=== PATIENT | male | born 1975 | race Caucasian/White ===

== ENCOUNTER 2016-12-02 08:00 | Outpatient (CLI) | payer MEDICARE, MEDICAID ==
[2016-12-02 18:18] LABS: BILIRUBIN,DIRECT 0.1 mg/dL (0.1-0.5); BILIRUBIN,TOTAL 0.7 mg/dL (0.2-1.0); TOTAL PROTEIN 7.6 g/dL (6.7-8.2)
== END 2016-12-02 08:01 | disposition home or self-care (01) ==
LOC: LAB.F 08:00
PROVIDERS: ATTEND Nurse Practitioner
DX: K59.2 Neurogenic bowel, not elsewhere classified (principal); S14.105D Unspecified injury at C5 level of cervical spinal cord, subsequent encounter
CPT/HCPCS: 80076; 82306

== ENCOUNTER 2017-03-26 12:50 | Outpatient (CLI) | payer MEDICARE, MEDICAID ==
--- NOTE | 2017-03-26 16:25 | Ultrasound Report ---
RENAL ULTRASOUND: 03/26/2017 CLINICAL INDICATION: Neurogenic bladder. COMPARISON: 08/01/2015. TECHNIQUE: Real-time sonographic vascular imaging was performed by the cardiac/vascular sonographer through the kidney s utilizing both color-flow and Doppler spectral analysis. Multiple data entry representative static images wer e saved for review. FINDINGS: The right kidney measures 11.1 x 6.3 x 5.0 cm, and the left kidney measures 11.7 x 6.5 x 6 .0 cm. No hydronephrosis, focal renal lesion, or perinephric collection is seen. A suprapubic bladder catheter is present. Two small bladder calculi are noted, with the larger measur ing 9 mm, and the smaller measuring 5 mm. Bilateral ureteral jets are seen. No bladder wall mass is i dentified. IMPRESSION: NO EVIDENCE OF HYDRONEPHROSIS OR NEPHROLITHIASIS. TWO SMALL BLADDER CALCULI, THE LARGER MEASURING 9 MM AND THE SMALLER MEASURING 5 MM. JOB #: [id number] EXT JOB #:[id number]
--- NOTE | 2017-03-26 17:09 | XRAY Report ---
SUPINE ABDOMEN: 03/26/2017 CLINICAL INDICATION: Neurogenic bladder. Supine views of the abdomen demonstrate a normal bowel gas pattern. No small bowel dilatation is pre sent. No definite bladder calculus is identified in the pelvis. IMPRESSION: NO EVIDENCE OF BOWEL OBSTRUCTION. JOB #: [id number] EXT JOB #:[id number]
== END 2017-03-26 12:51 | disposition home or self-care (01) ==
LOC: DI 12:50
PROVIDERS: ATTEND Urology
DX: N21.0 Calculus in bladder (principal)
CPT/HCPCS: 74000; 76770

== ENCOUNTER 2017-05-07 10:30 | Outpatient (CLI) | payer MEDICARE, MEDICAID ==
[2017-05-07 17:48] LABS: BASOPHILS % (AUTO) 0.9 %; EOSINOPHILS % (AUTO) 5.3 %; LYMPHOCYTES % (AUTO) 11.2 %; MEAN CORPUSCULAR HEMOGLOBIN 29.6 pg (27.0-31.0); MEAN CORPUSCULAR HGB CONC 33.3 g/dL (32.0-36.0); MEAN CORPUSCULAR VOLUME 88.8 fL (80.0-94.0); MEAN PLATELET VOLUME 8.9 fL (7.4-11.4); MONOCYTES % (AUTO) 7.3 %; NEUTROPHILS % (AUTO) 75.3 %; RED BLOOD COUNT 5.06 10^6/uL (4.70-6.10); RED CELL DISTRIBUTION WIDTH 12.4 % (12.0-15.0); UNCORRECTED WHITE BLOOD COUNT 12.5 x10^3/uL; WHITE BLOOD COUNT 12.5 x10^3/uL (4.8-10.8)
[2017-05-07 18:11] LABS: BILIRUBIN,TOTAL 0.6 mg/dL (0.2-1.0); CALCIUM 9.1 mg/dL (8.5-10.3); CREATININE 0.8 mg/dL (0.6-1.2); POTASSIUM 4.2 mmol/L (3.5-5.0); TOTAL PROTEIN 8.1 g/dL (6.7-8.2)
[2017-05-07 19:57] LABS: BAND NEUTROPHILS % (MANUAL) 6 %; EOSINOPHILS % (MANUAL) 6 %; LYMPHOCYTES % (MANUAL) 5 %; NEUTROPHILS % (MANUAL) 73 %; TOTAL CELLS COUNTED 100
[2017-05-07 19:58] LABS: NP AUTO DIFFERENTIAL? YES; NP MAN DIFFERENTIAL? NO; PLATELET ESTIMATE, MANUAL NORMAL (130-450,000) (NORMAL); PLATELET MORPHOLOGY NORMAL APPEARANCE (NORMAL)
== END 2017-05-07 10:31 | disposition home or self-care (01) ==
LOC: LAB.R 10:30
PROVIDERS: ATTEND Internal Medicine
DX: Z79.899 Other long term (current) drug therapy (principal)
CPT/HCPCS: 80053; 82306; 82465; 83615; 84443; 84478; 85025

== ENCOUNTER 2018-07-08 11:05 | Outpatient (CLI) | payer MEDICARE, MEDICAID ==
[2018-07-08 17:58] LABS: BASOPHILS # (AUTO) 0.1 10^3/uL (0.0-0.1); BASOPHILS % (AUTO) 1.2 %; EOSINOPHILS # (AUTO) 0.6 10^3/uL (0.0-0.7); EOSINOPHILS % (AUTO) 8.3 %; HGB - HEMOGLOBIN 14.9 g/dL (14.0-18.0); LYMPHOCYTES # (AUTO) 1.5 10^3/uL (1.5-3.5); LYMPHOCYTES % (AUTO) 19.7 %; MEAN CORPUSCULAR HEMOGLOBIN 29.9 pg (27.0-31.0); MEAN CORPUSCULAR HGB CONC 33.5 g/dL (32.0-36.0); MEAN CORPUSCULAR VOLUME 89.1 fL (80.0-94.0); MEAN PLATELET VOLUME 8.7 fL (7.4-11.4); MONOCYTES # (AUTO) 0.5 10^3/uL (0.0-1.0); NEUTROPHILS # (AUTO) 4.9 10^3/uL (1.5-6.6); NEUTROPHILS % (AUTO) 63.8 %; PLT - PLATELET COUNT 266 10^3/uL (130-450); RED BLOOD COUNT 4.98 10^6/uL (4.70-6.10); RED CELL DISTRIBUTION WIDTH 13.2 % (12.0-15.0); WHITE BLOOD COUNT 7.6 x10^3/uL (4.8-10.8)
[2018-07-08 18:29] LABS: THYROID STIMULATING HORMONE 0.37 uIU/mL (0.34-5.60)
[2018-07-08 18:31] LABS: FREE T4 (FREE THYROXINE) 0.74 ng/dL (0.58-1.64)
[2018-07-08 18:35] LABS: ALBUMIN 4.1 g/dL (3.2-5.5); ALKALINE PHOSPHATASE 70 IU/L (42-121); ALT ALANINE AMINOTRANSFERASE 27 IU/L (10-60); AST ASPARTATE AMINOTRANSFERASE 25 IU/L (10-42); BILIRUBIN,TOTAL 0.5 mg/dL (0.2-1.0); BUN - BLOOD UREA NITROGEN 9 mg/dL (6-20); CALCIUM 9.1 mg/dL (8.5-10.3); CARBON DIOXIDE - CO2 27 mmol/L (21-32); CHLORIDE 107 mmol/L (101-111); CHOL/HDL RATIO 7.4 (<5.0); CHOLESTEROL 186 mg/dL; CREATININE 0.7 mg/dL (0.6-1.2); GFR - MDRD 123 (>89); GLUCOSE 112 mg/dL (70-100); HDL CHOLESTEROL 25 mg/dL; LDL CHOLESTEROL,CALCULATED 125 mg/dL; SODIUM 138 mmol/L (135-145); TOTAL PROTEIN 8.2 g/dL (6.7-8.2); VLDL CHOLESTEROL 36 mg/dL
== END 2018-07-08 23:59 | disposition home or self-care (01) ==
LOC: LAB.R 11:05
PROVIDERS: ATTEND Internal Medicine
DX: E78.5 Hyperlipidemia, unspecified (principal); E55.9 Vitamin D deficiency, unspecified; Z79.899 Other long term (current) drug therapy
CPT/HCPCS: 80053; 80061; 82306; 83721; 84439; 84443; 85025

== ENCOUNTER 2019-02-09 13:09 | Outpatient (CLI) | payer MEDICARE, MEDICAID ==
[2019-02-09 17:24] VITALS: BP 100/60
--- NOTE | 2019-02-09 17:24 | SLEEP CARE CONSULTATION ---
Information from patient questionnaire entered by Ana [place]. I have reviewed and concur with the information entered by Ana [place]. This document represents the service I personally performed and the decisions made by me, Nakul Sierra MD, [facility]. History of Present Illness Reason for Visit: New patient, sleep apnea on CPAP therapy Chief Complaint: reports: Snoring, Excessive daytime sleepiness, Observed pauses in breathing Duration of Symptoms: since 2011 Usual bedtime: 11:00 pm Time it takes to fall asleep: 15 mins with CPAP Snores at night: Yes Observed to quit breathing while asleep: No Sleeps alone due to snoring: No Number of times waking at night: 2 Reasons for waking at night: reports: Snoring Toss, Turn, or Twitch while sleeping: No Recalls having dreams: Yes Usually gets out of bed at: 8:30 am Feels refreshed in the morning: Yes Morning headache: No Sleepy or fatigued during the day: No Ever fallen asleep while driving: No Takes day naps: Yes Dreams during day naps: No Prior sleep studies: Yes Year and Where: [address] [facility] Additional HPI information: I had the pleasure of seeing Mr. Chun along with his mother today regarding the possibility of him having a sleep disorder. As you know, he is a 43 year old gentleman who was diagnosed with the sleep-disordered breathing in 2011 at [facility]. The AHI was 99.2 and he was noted to have hypoventilation. BiPAP was prescribed and set at 26/18.2 cmH2O. He has been using the device every night and all night. The compliance data show usage in 175 out of the past 180 nights, averaging 5.2 hours a night. The > 4 hour compliance rate for the past 30 days is 98%. The residual AHI is 4.7 and average air leak is 1.7 L/minute. He wears a full face mask and complains of having to wear it very tightly. - Parasomnia Symptoms Ever been unable to move upon waking from sleep: Yes Ever felt weak in the knees when startled or emotional: No Bothered by creepy, crawly, restless sensations in legs: No Problems with memory or concentration: Yes CPAP Compliance Data - Data Reviewed with Patient Average duration of nightly device use: 5.2 Compliance rate %: 97 Current pressure setting (cmH2O): 26/18.2 Average residual AHI: 4.7 Subjective Initial [place] Sleepiness Scale score: 8 Past Medical History Past Medical History: reports: Arthritis, GERD, Other (Paralysis) Social History Patient is Single and lives in [place]. Have you smoked in the past 12 months: No Alcohol use: No Caffeine use: Yes Caffeine amount and frequency: 4 cups a week Family History Family history of sleep disordered breathing: No Allergies and Home Medications Known drug allergies: No Home medication list reviewed: Yes Review of Systems Weight gain over past 5 years: 5 Cardiovascular: denies: high blood pressure, palpitations, chest pain, irregular heart rate or pulse, leg or foot swelling, have to sleep sitting up, other Gastrointestinal: reports: nausea, diarrhea Urinary: reports: incontinence Neurological: denies: headaches, seizure, head trauma, disorientation, speech dysfunction, gait or balance problems, fainting or unconsciousness, other Ear/Nose/Throat: reports: nasal congestion, sinus problems, dry mouth/throat, tonsillectomy Endocrine: denies: thyroid disease, history of goiter, sluggishness, too hot or cold, excessive thirst, increased appetite, increased urination, unexplained weakness, other Musculoskeletal: reports: mobility problems Immunologic: reports: allergies to food or environment (nuts) Physical Exam Vital signs obtained and entered by: Dr. Sierra Blood Pressure: 100/60 Height: 5 ft 8 in Weight (kg): 205 lb Body Mass Index: 31.1 BMI Classification: Class 1 Neck circumference: 19.5 Mood/affect: normal Nostrils: partially obstructed Turbinates: normal Septum: midline Mouth and throat: narrow oropharynx Soft palate: long Hard palate: normal Uvula: normal Uvula visualization: 25% Mallampati Class III Tongue: normal in size Tonsils: absent bilaterally Chin and jaw: Retrognathia Neck: normal w/o lymphadenopathy or thyromegaly Heart: regular rate and rhythm Lungs: clear bilaterally Abdomen: soft Extremities: no edema or clubbing Neurologic: other: Impression and Plan IMPRESSION: 1. Obstructive Sleep Apnea-Hypopnea Syndrome, very severe. The patient has had excellent CPAP compliance. The current pressure setting appears effective and but slightly uncomfortable. His mask fits well. I showed him newer full face masks. Narrow oropharynx and obesity are common predisposing factors for obstructive sleep apnea-hypopnea syndrome. His cervical spinal cord injury most likely also causes hypoventilation. Because the BiPAP is now older than the useful life of 5 years, I will order the patient a new one and set slightly lower it at 24/16 cmH2O. Plan: 1. Prescription made for BiPAP, heated humidifier, and related supplies. 2. Attempt to lose weight. 3. Return for follow up after one month on the new machine. I spent 100% of this 15 minute visit face to face with the patient with greater than 50% of this was spent time counseling the patient and coordination of care.
== END 2019-02-09 13:10 | disposition home or self-care (01) ==
LOC: SC 13:09
PROVIDERS: ATTEND Internal Medicine Pulmonary Disease
DX: G47.33 Obstructive sleep apnea (adult) (pediatric) (principal)
CPT/HCPCS: 99203; 99212

== ENCOUNTER 2020-06-28 08:00 | Outpatient (CLI) | payer MEDICARE, MEDICAID ==
[2020-06-28 17:20] LABS: BILIRUBIN,URINE NEGATIVE (NEGATIVE); GLUCOSE, URINE (UA) NEGATIVE (NEGATIVE); KETONES,URINE (UA) NEGATIVE (NEGATIVE); LEUKOCYTE ESTERASE, URINE SMALL (NEGATIVE); NITRITE,URINE NEGATIVE (NEGATIVE); OCCULT BLOOD,URINE MODERATE (NEGATIVE); PROTEIN,URINE NEGATIVE (NEGATIVE); UROBILINOGEN,URINE 0.2 (NORMAL) E.U./dL (NORMAL)
[2020-06-28 17:22] LABS: CLARITY,URINE CLEAR (CLEAR)
[2020-06-28 17:40] LABS: AMORPHOUS SEDIMENT,UR Rare /LPF; BACTERIA,URINE Many /HPF (None Seen); SQUAMOUS EPITHELIAL CELL,UR MANY Squamous (<= Few)
== END 2020-06-28 23:59 | disposition home or self-care (01) ==
LOC: LAB.R 08:00
PROVIDERS: ATTEND Family Medicine
DX: N39.0 Urinary tract infection, site not specified (principal)
CPT/HCPCS: 81001; 81003; 87086

== ENCOUNTER 2020-10-12 11:43 | Emergency (ER) | payer MEDICARE, MEDICAID ==
--- OUTSIDE RECORDS SUMMARY | 2020-10-12 12:18 | EXTERNAL MEDICAL SUMMARY RPT | Continuity of Care Document ---
:1975 Demographics Phone Unavailable Preferred Language Unknown Marital Status Unknown Yazidi Affiliation Unknown Race Unknown Ethnic Group Unknown Author Organization [facility] Address [address] [id number] Phone Social History date description facility [id number]
[2020-10-12] MEDS ORDERED: BUFFERED LIDOCAINE 10 ML SYRINGE SUBQ STA (14:01)
--- NOTE | 2020-10-12 14:27 | ED Physician Documentation ---
History of Present Illness - Stated complaint Stated Complaint: POSSIBLE FOOT INFECTION - Chief complaint Chief Complaint: Ext Problem - History obtained from History obtained from: Patient, Family (mother) - Additonal information Additional information: 45yM with pmh guadriplegia presents with L foot callus progressing to erythema over the past couple days. Patient has no sensation to the foot however it has been jerking more than usual and has slowly become more swollen and erythematous, starting from the ball of the foot where his blister/callus initially formed. denies fever. 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 Review of Systems Constitutional: denies: Fever, Chills Skin: reports: Other (erythema and swelling) Musculoskeletal: reports: Extremity swelling Neurologic: reports: Focal weakness, Numbness PD PAST MEDICAL HISTORY - Past Medical History Past Medical History: Yes Respiratory: None Endocrine/Autoimmune: None GI: None : Indwelling catheter, Kidney stones HEENT: None Psych: None Musculoskeletal: Other Derm: None - Past Surgical History Past Surgical History: Yes General: Other Ortho: Other HEENT: Tonsil/Adenoidectomy - Present Medications Home Medications: Ambulatory Orders Medication Instructions Recorded Confirmed Ascorbic Acid [Vitamin C] 500 mg PO BID 08/03/15 08/14/15 Baclofen 10 mg PO QID 08/03/15 08/14/15 Gabapentin [Neurontin] 300 mg PO QID 08/03/15 08/14/15 Multivitamin [Theragran] 1 tab PO DAILY 08/03/15 08/03/15 Omeprazole [PriLOSEC] 20 mg PO DAILY 08/03/15 08/03/15 Oxybutynin [Ditropan] 5 mg PO TID 08/03/15 08/14/15 Senna [Senokot] 8.6 mg PO DAILY 08/03/15 08/03/15 diazePAM [Valium] 5 mg PO TID 08/03/15 08/14/15 tiZANidine [Zanaflex] 4 mg PO TID 08/03/15 08/14/15 Docusate Sodium 250Mg Capsule 250 mg PO BID 08/14/15 08/14/15 [Colace] Bacitracin 3.5 gm OP DAILY 20 Days #1 bottle 10/12/20 cephALEXin [Keflex] 500 mg PO Q6H #28 tab 10/12/20 - Allergies Allergies/Adverse Reactions: Allergies Allergy/AdvReac Type Severity Reaction Status Date / Time tree nut [Tree Nut] Allergy Unknown UNKNOWN Verified 11/27/12 13:50 - Social History Does the pt smoke?: No Smoking Status: Never smoker Does the pt drink ETOH?: No Does the pt have substance abuse?: No - Immunizations Immunizations are current?: Yes - POLST Patient has POLST: No PD ED PE NORMAL - Vitals Vital signs reviewed: Yes - General General: Alert and oriented X 3, No acute distress, Well developed/nourished - HEENT HEENT: Atraumatic, PERRL, EOMI - Derm Derm: Warm and dry, Other (erythema and swelling to base of L foot with blister to ball of foot and overlying callus formation) - Extremities Extremities: No deformity, Other (2+ BL DP and PT pulses) - Neuro Neuro: Alert and oriented X 3, Other (extremities quadriplegic at baseline.) - Psych Psych: Normal mood, Normal affect Results - Vitals Vitals: Vital Signs - 24 hr 10/12/20 10/12/20 11:59 15:03 Temperature 36.3 C L Heart Rate 95 90 Respiratory 16 16 Rate Blood Pressure 136/102 H 130/100 H O2 Saturation 99 99 Oxygen O2 Source Room air Procedures - Abscess I&D (location) Foot left Plantar Preparation: Lidocaine 1% Incision: Incised with scalpel, Irrigated, Other (no purulence. blister contained about 5-10cc serous fluid. irrigated copiously with normal saline and then applied sterile dressing.) Other: Pt tolerated well, Dressing applied, Antibiotic prescribed PD MEDICAL DECISION MAKING - ED course ED course: 45yM with pmh quadriplegia presents with recent blister and callus formation to L foot that appears to have become infected. I cut the callus open and irrigated with sterile saline and then a sterile dressing was applied and antibiotics prescribed. patient tolerated well. strict return precautions given. He will have daily dressing changes by visiting nurse services. Plan to f/u with wound clinic and podiatry. Departure - Departure Disposition: 01 Home, Self Care Clinical Impression: Cellulitis Condition: Good Instructions: Cellulitis Dc Prescriptions: Bacitracin 3.5 gm OP DAILY 20 Days #1 bottle cephALEXin [Keflex] 500 mg PO Q6H #28 tab Comments: You were seen in the emergency department for left foot cellulitis (a skin infection). It is important to take antibiotics as prescribed and return to the emergency department if you have any fevers, if the swelling is not getting better or is getting worse in 48 hours, or if you have other concerns. Please follow-up with wound clinic and with podiatry. The dressing should be changed daily with a nonstick bandage and Kerlix as well as bacitracin. Wound Care Center Doctor [facility] [place], [place] [address] [address] [facility] Facebook ([phone]) [employer] [address] Open Closes 5:30 PM Discharge Date/Time: 10/12/20 15:04
[2020-10-12] MEDS ORDERED: BACITRACIN ZINC OINT 1 PACKET TOP STA (14:48)
[2020-10-12 15:04] VITALS: BP 130/100
== END 2020-10-12 15:04 | disposition home or self-care (01) ==
LOC: ED 11:43
DX: L03.116 Cellulitis of left lower limb (principal); L84 Corns and callosities; S90.822A Blister (nonthermal), left foot, initial encounter; X58.XXXA Exposure to other specified factors, initial encounter; G82.50 Quadriplegia, unspecified
CPT/HCPCS: 10060; 10140

== ENCOUNTER 2020-11-06 14:40 | Outpatient (CLI) | payer MEDICARE, MEDICAID | END 2020-11-06 23:59 | disposition home or self-care (01) | LOC: LAB.R 14:40 | PROVIDERS: ATTEND Family Medicine | DX: G82.50 Quadriplegia, unspecified (principal) | CPT/HCPCS: 87070; 87077; 87181; 87205 ==

== ENCOUNTER 2021-09-12 14:46 | Outpatient (CLI) | payer MEDICARE, MEDICAID ==
--- NOTE | 2021-09-12 17:22 | XRAY Report ---
PROCEDURE: Foot 3 View LT INDICATIONS: PRESSURE ULCER OF OTHER SITE, STAGE 3 TECHNIQUE: 3 views of the foot were acquired. COMPARISON: None FINDINGS: Bones: Dislocation of the small toe MTP joint. Severe disuse osteopenia. No suspicious bony lesions. No conclusive evidence of osteomyelitis. Soft tissues: No tibiotalar joint effusion. Achilles tendon appears normal. IMPRESSION: 1. Dislocation of the small toe MTP joint. 2. Severe disuse osteopenia. 3. No conclusive evidence of osteomyelitis by plain films. However, consider left foot MRI with and w ithout contrast if suspect osteomyelitis. Reviewed by: Shaw Felix MD on 09/12/2021 5:21 PM PDT Approved by: Shaw Felix MD on 09/12/2021 5:21 PM PDT Station ID: [id number]
== END 2021-09-12 14:47 | disposition home or self-care (01) ==
LOC: DI 14:46
PROVIDERS: ATTEND Nurse Practitioner
DX: L89.893 Pressure ulcer of other site, stage 3 (principal); S93.125A Dislocation of metatarsophalangeal joint of left lesser toe(s), initial encounter; M85.872 Other specified disorders of bone density and structure, left ankle and foot

== ENCOUNTER 2021-11-08 14:25 | Outpatient (CLI) | payer MEDICARE, MEDICAID ==
[2021-11-08 14:45] LABS: BILIRUBIN,URINE NEGATIVE (NEGATIVE); GLUCOSE, URINE (UA) NEGATIVE (NEGATIVE); KETONES,URINE (UA) NEGATIVE (NEGATIVE); LEUKOCYTE ESTERASE, URINE MODERATE (NEGATIVE); NITRITE,URINE POSITIVE (NEGATIVE); OCCULT BLOOD,URINE TRACE-INTA (NEGATIVE); PROTEIN,URINE NEGATIVE (NEGATIVE); UROBILINOGEN,URINE 0.2 (NORMAL) E.U./dL (NORMAL)
[2021-11-08 14:49] LABS: CLARITY,URINE SL. CLOUDY (CLEAR)
[2021-11-08 14:56] LABS: BACTERIA,URINE Moderate /HPF (None Seen); RBC,URINE 0-5 /HPF (0-5); SQUAMOUS EPITHELIAL CELL,UR FEW Squamous (<= Few); WBC CLUMPS,URINE PRESENT; WBC,URINE >25 /HPF (0-3)
== END 2021-11-08 14:26 | disposition home or self-care (01) ==
LOC: LAB 14:25
PROVIDERS: ATTEND Family Medicine
DX: Z46.6 Encounter for fitting and adjustment of urinary device (principal)
CPT/HCPCS: 81001; 87086

== ENCOUNTER 2022-03-22 15:06 | Outpatient (CLI) | payer MEDICARE, MEDICAID ==
[2022-03-22 20:24] LABS: BILIRUBIN,URINE NEGATIVE (NEGATIVE); GLUCOSE, URINE (UA) 500 mg/dL (NEGATIVE); KETONES,URINE (UA) 15 mg/dL (NEGATIVE); LEUKOCYTE ESTERASE, URINE SMALL (NEGATIVE); NITRITE,URINE NEGATIVE (NEGATIVE); OCCULT BLOOD,URINE LARGE (NEGATIVE); PROTEIN,URINE 100 mg/dL (NEGATIVE); UROBILINOGEN,URINE 1 (NORMAL) E.U./dL (NORMAL)
[2022-03-22 20:26] LABS: CLARITY,URINE CLOUDY (CLEAR)
[2022-03-22 20:40] LABS: WBC,URINE >25 /HPF (0-3)
[2022-03-22 20:41] LABS: BACTERIA,URINE Few /HPF (None Seen); SQUAMOUS EPITHELIAL CELL,UR RARE Squamous (<= Few); YEAST,URINE PRESENT
== END 2022-03-22 15:07 | disposition home or self-care (01) ==
LOC: LAB.R 15:06
PROVIDERS: ATTEND Internal Medicine
DX: N39.0 Urinary tract infection, site not specified (principal)
CPT/HCPCS: 81001; 81003; 87086

== ENCOUNTER 2022-09-26 08:00 | Outpatient (CLI) | payer MEDICARE, MEDICAID ==
[2022-09-26 14:13] LABS: BASOPHILS # (AUTO) 0.1 10^3/uL (0.0-0.1); BASOPHILS % (AUTO) 0.8 %; EOSINOPHILS # (AUTO) 0.3 10^3/uL (0.0-0.7); EOSINOPHILS % (AUTO) 4.8 %; HGB - HEMOGLOBIN 15.9 g/dL (14.0-18.0); LYMPHOCYTES # (AUTO) 1.4 10^3/uL (1.5-3.5); LYMPHOCYTES % (AUTO) 23.3 %; MEAN CORPUSCULAR HEMOGLOBIN 29.6 pg (27.0-31.0); MEAN CORPUSCULAR HGB CONC 33.8 g/dL (32.0-36.0); MEAN CORPUSCULAR VOLUME 87.4 fL (80.0-94.0); MEAN PLATELET VOLUME 10.6 fL (7.4-11.4); MONOCYTES # (AUTO) 0.5 10^3/uL (0.0-1.0); MONOCYTES % (AUTO) 8.9 %; NEUTROPHILS # (AUTO) 3.8 10^3/uL (1.5-6.6); NEUTROPHILS % (AUTO) 61.4 %; PLT - PLATELET COUNT 244 10^3/uL (130-450); RED BLOOD COUNT 5.38 10^6/uL (4.70-6.10); RED CELL DISTRIBUTION WIDTH 12.1 % (12.0-15.0); WHITE BLOOD COUNT 6.1 x10^3/uL (4.8-10.8)
[2022-09-26 14:45] LABS: ALBUMIN 3.8 g/dL (3.2-5.5); ALKALINE PHOSPHATASE 80 IU/L (42-121); ALT ALANINE AMINOTRANSFERASE 34 IU/L (10-60); AST ASPARTATE AMINOTRANSFERASE 19 IU/L (10-42); BILIRUBIN,TOTAL 0.7 mg/dL (0.2-1.0); BUN - BLOOD UREA NITROGEN 14 mg/dL (6-20); CALCIUM 9.1 mg/dL (8.5-10.3); CARBON DIOXIDE - CO2 26 mmol/L (21-32); CHLORIDE 102 mmol/L (101-111); CHOL/HDL RATIO 8.6 (<5.0); CHOLESTEROL 231 mg/dL; CREATININE 0.6 mg/dL (0.6-1.2); GFR - MDRD 143 (>89); GLUCOSE 344 mg/dL (70-100); HDL CHOLESTEROL 27 mg/dL; LDL CHOLESTEROL,CALCULATED 160 mg/dL; LDL/HDL RATIO 5.9 (<3.6); POTASSIUM 4.2 mmol/L (3.5-5.0); SODIUM 133 mmol/L (135-145); TOTAL PROTEIN 7.5 g/dL (6.7-8.2); TRIGLYCERIDES 219 mg/dL; VLDL CHOLESTEROL 44 mg/dL
== END 2022-09-26 23:59 | disposition home or self-care (01) ==
LOC: LAB.R 08:00
PROVIDERS: ATTEND Internal Medicine
DX: Z00.00 Encounter for general adult medical examination without abnormal findings (principal); K21.9 Gastro-esophageal reflux disease without esophagitis; N31.9 Neuromuscular dysfunction of bladder, unspecified; G82.50 Quadriplegia, unspecified; Z79.899 Other long term (current) drug therapy
CPT/HCPCS: 80053; 80061; 83721; 84443; 85025

== ENCOUNTER 2023-01-13 13:24 | Outpatient (CLI) | payer MEDICARE, MEDICAID ==
--- NOTE | 2023-01-13 17:09 | XRAY Report ---
PROCEDURE: Abdomen 1 View X-Ray INDICATIONS: BLADDER STONE TECHNIQUE: One view of the abdomen acquired. COMPARISON: X-ray abdomen, 03/26/2017. FINDINGS: Surgical changes and devices: None. Bowel: Bowel gas pattern is normal. Soft tissues: No suspicious abdominal calcifications. Visualized solid organ contours appear normal in size. Bones: No suspicious bony lesions. IMPRESSION: No acute abdominal pathology. Reviewed by: Anil Pratt MD on 01/13/2023 5:07 PM PDT Approved by: Anil Pratt MD on 01/13/2023 5:07 PM PDT Station ID: [id number]
--- NOTE | 2023-01-14 09:11 | Ultrasound Report ---
PROCEDURE: Retroperitoneal INDICATIONS: BLADDER STONE TECHNIQUE: Real-time scanning was performed of the retroperitoneal organs, with image documentation. COMPARISON: [Knee ultrasound, 03/26/2017. CT of abdomen and pelvis . FINDINGS: Kidneys: Kidneys are normal in size. Right kidney measures 11.5 cm long; left kidney measures 11.3 cm long. Right renal cortical thickness is 1.4 cm; left renal cortical thickness is 2.3 cm. No freya d masses, hydronephrosis, or nephrolithiasis. Bladder: There is a catheter in bladder. A 1.7 cm stone is seen within the gravity dependent urinary bladder. Pre-void bladder volume is 38.7 mL. Post-void residual is 6.9 mL. Pre-void images demonst rate no intraluminal masses or stones. On pre-void images, neither ureteral jets are noted with col or Doppler interrogation. (Of note, ureteral jets may not be detectable in up to 25% of cases due to insufficient differences in specific gravity between ureteral and bladder urine). Miscellaneous: No free abdominal fluid. IMPRESSION: 1. Normal ultrasound appearance of kidneys. No renal stones or hydronephrosis. 2. A 1.7 cm diameter stone in gravity dependent bladder lumen. Reviewed by: Anil Pratt MD on 01/14/2023 9:09 AM PDT Approved by: Anil Pratt MD on 01/14/2023 9:09 AM PDT Station ID: [id number]
== END 2023-01-13 13:25 | disposition home or self-care (01) ==
LOC: DI 13:24
PROVIDERS: ATTEND Urology
DX: N21.0 Calculus in bladder (principal)

== ENCOUNTER 2023-02-03 10:38 | Day surgery (SDC) | payer MEDICARE, MEDICAID ==
[2023-02-03] MEDS ORDERED: ceFAZolin 2 GM VIAL ONE (11:03)
[2023-02-03] MEDS ORDERED: PROPOFOL 200 MG/20 ML VIAL IVP ONE (11:14)
[2023-02-03] MEDS ORDERED: LIDOCAINE-PF 2% 10 ML AMP SUBQ ONE (11:14)
[2023-02-03] MEDS ORDERED: fentaNYL 100 MCG/2 ML VIAL ONE ×2 (11:14→14:00)
[2023-02-03] MEDS ORDERED: MIDAZOLAM 2 MG/2 ML VIAL ONE (11:14)
[2023-02-03] MEDS ORDERED: LACTATED RINGERS 1,000 ML IV ONE ×3 (11:21→15:18)
[2023-02-03] MEDS ORDERED: LIDOCAINE-MPF 1% 30 ML VIAL ONE (11:37)
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
[2023-02-03] MEDS ORDERED: ONDANSETRON 4 MG/2 ML VIAL ONE (12:13)
[2023-02-03] MEDS ORDERED: DEXAMETHASONE 4 MG/ML VIAL ONE (12:13)
[2023-02-03] MEDS ORDERED: LIDOCAINE 1% 50 ML MDV SUBQ ONE (12:18)
[2023-02-03] MEDS ORDERED: HYDROcod/ACETAM 5/325 MG TABLET PO PRN (12:59)
[2023-02-03] MEDS ORDERED: LACTATED RINGERS 1,000 ML IV SCH ×2 (13:00→14:00)
--- NOTE | 2023-02-03 13:03 | Discharge Plan ---
Discharge Plan Problem Reviewed?: Yes Disposition: Home, Self Care Condition: Good Diet: Regular Activity Restrictions: routine catheter restrict Shower Restrictions: No Driving Restrictions: No Instruction Topics: Catheter Suprapubic Care Dc Additional Instructions or Follow Up instructions: OK for the catheter to be changed in 1 month with normal nursing care Please change the catheter for a 22f catheter Call for fever >100.4 No Smoking: If you smoke, Please STOP! Call for help. Follow-up with: Shahram Case MD [Provider Admit Priv/Credential] -
--- NOTE | 2023-02-03 13:07 | OPERATIVE REPORT ---
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 At that point time the pat ient was anesthetized per anesthesia protocols and prepped and draped in usual sterile fashion. A timeout was performed reconfirming the patient procedure and laterality. His suprapubic tube was removed prior to this. A 22 Argentine cystoscope was advanced easily into urinary bladder. There was a 1.5 cm yellow/brown bladder stone. A sensor wire was placed through the suprapubic tube site into the bladder to maintain it. Using 1000 m laser fiber the stone was then dusted at a power of 2.5 and a rate of 12. There were only small pieces remaining. The suprapubic tube site was digitally evaluated and there was a tight band of tissue near the skin edge which was limiting the size of the catheters that could be placed. This was sharply incised with a scalpel to open up. 1% lidocaine was placed before this for anesthesia. The skin edges were spatulated open and closed with 4-0 Monocryl suture. Using Amplatz renal dilators the suprapubic tube site was dilated to 26 Argentine, and then a 22 Argentine two-way catheter was placed into the bladder. 15 cc were placed in the balloon. Cystoscopically we confirmed the tube was in good position. There was no obvious bleeding. We then placed gauze and tape around the superior tube. The tube was placed to gravity drainage. This included the procedure patient was brought to PACU that further incident. All surgical counts were correct.
[2023-02-03] MEDS ORDERED: MORPHINE 2 MG/ML CARPUJECT IVP PRN (13:27)
[2023-02-03] MEDS ORDERED: hydrALAZINE INJ 20 MG/ML VIAL IVP ONE (13:27)
[2023-02-03] MEDS ORDERED: ATROPINE ABBOJECT 1 MG/10 ML SYRINGE IVP PRN (13:27)
[2023-02-03] MEDS ORDERED: fentaNYL 100 MCG/2 ML VIAL IVP PRN (13:27)
[2023-02-03] MEDS ORDERED: ONDANSETRON 4 MG/2 ML VIAL IVP PRN (13:27)
[2023-02-03] MEDS ORDERED: HYDROmorphone 0.5 MG/0.5 ML SYRINGE IVP PRN (13:27)
[2023-02-03] MEDS ORDERED: NALOXONE 0.4 MG/ML VIAL IVP PRN (13:27)
[2023-02-03] MEDS ORDERED: LABETALOL 20 MG/4 ML SYRINGE IVP PRN (13:28)
[2023-02-03] MEDS ORDERED: SODIUM CHLORIDE 0.9% 10 ML VIAL IVP ONE (13:35)
[2023-02-03] MEDS ORDERED: LABETALOL 20 MG/4 ML SYRINGE IVP ONE (14:19)
[2023-02-03 15:29] VITALS: O2SAT 98
[2023-02-03 15:48] VITALS: BP 137/79
--- NOTE | 2023-02-03 17:52 | ANESTHESIA POST OP EVALUATION ---
Anesthesia Post Eval - Post Anesthesia Eval Vitals: Last Vital Signs Temp 36.5 C 02/03/23 15:24 Pulse 110 H 02/03/23 15:36 Resp 17 02/03/23 15:36 BP 137/79 H 02/03/23 15:36 Pulse Ox 98 02/03/23 15:36 O2 Flow Rate CV Function Including HR & BP: Stable Pain Control: Satisfactory Nausea & Vomiting: Negative Mental Status: Baseline Respiratory Status: Airway Patent Hydration Status: Satisfactory Anesthesia Complications: None - Other Details/Therapies Other Details/Therapies: Patient's blood pressure improved after placement of transuretral catheter.
== END 2023-02-03 10:39 | disposition home or self-care (01) ==
LOC: SDS 10:38
PROVIDERS: ATTEND Urology
DX: N21.0 Calculus in bladder (principal); Z43.5 Encounter for attention to cystostomy; Z46.6 Encounter for fitting and adjustment of urinary device; N31.9 Neuromuscular dysfunction of bladder, unspecified; E11.9 Type 2 diabetes mellitus without complications; E66.9 Obesity, unspecified; G82.50 Quadriplegia, unspecified; S14.104S Unspecified injury at C4 level of cervical spinal cord, sequela; G47.33 Obstructive sleep apnea (adult) (pediatric); Z68.31 Body mass index [BMI] 31.0-31.9, adult
CPT/HCPCS: 51710; 52317; J7120

== ENCOUNTER 2023-09-04 15:37 | Inpatient (IN) | payer MEDICARE, MEDICAID ==
--- NOTE | 2023-09-04 17:49 | CONSULTATION NOTE ---
Referring Provider Consult Date: 09/04/23 Chief Complaint - Chief Complaint Chief Complaint: buttock wound History of Present Illness - History Obtained From History obtained from: pt Exam Limitations: none - History of Present Illness HPI Comment/Other: left buttock wound for several weeks. quadriplegic. history left buttock flap for chronic ulcer 12 years ago at [place]. History - Past Medical History Cardiovascular: reports: None Respiratory: reports: Sleep apnea, CPAP use Neuro: reports: Other Endocrine/Autoimmune: reports: Type 2 diabetes GI: reports: GERD : reports: Indwelling catheter, Kidney stones HEENT: reports: Chronic vision loss Psych: reports: None Musculoskeletal: reports: Quadriplegia, Other Derm: reports: None MRSA Hx?: Yes Other Past Medical History: pressure ulcers. wheelchair user/bedbound - Past Surgical History General: reports: Other Ortho: reports: Spine surgery, Other /TYPE MAPPER: reports: Other HEENT: reports: Tonsil/Adenoidectomy - Family & Social History Living Situation: With caregiver(s) Social History Notes: lives in [place] with caregivers and home health services; here with aunt; his mother is currently staying with his aunt but used to live with him. - Substance History Use: Uses substance without health or social issues: Alcohol - POLST Patient has POLST: No Meds/Allgy - Home Medications Home Medications: Ambulatory Orders Medication Instructions Recorded Confirmed Baclofen 20 mg PO QID 08/03/15 08/22/23 Gabapentin [Neurontin] 300 mg PO QID 08/03/15 08/22/23 Multivitamin [Theragran] 1 tab PO DAILY 08/03/15 08/22/23 Omeprazole [PriLOSEC] 20 mg PO DAILY 08/03/15 08/22/23 Oxybutynin [Ditropan] 5 mg PO BID 08/03/15 08/22/23 tiZANidine [Zanaflex] 12 mg PO TID 08/03/15 08/22/23 Docusate Sodium 250Mg Capsule 250 mg PO BID 08/14/15 08/22/23 [Colace] Vitamin E (Dl,Tocopheryl Acet) 1 cap PO DAILY 11/01/20 08/22/23 [Vitamin E] diazePAM [Valium] 5 mg PO BID 11/01/20 08/22/23 levoFLOXacin [Levofloxacin] 750 mg PO DAILY 14 Days #14 tablet 08/20/23 08/22/23 Amoxicillin 875 mg PO BID 14 Days #28 tablet 08/29/23 - Allergies Allergies/Adverse Reactions: Allergies Allergy/AdvReac Type Severity Reaction Status Date / Time tree nut [Tree Nut] Allergy Unknown UNKNOWN Verified 09/04/23 16:34 Review of Systems - Other Findings Other Findings: denies fevers or feeling of systemic illness. he has shaking arm seizures Exam - Vital Signs Vital Signs: Vital Signs x48h Temp Pulse Resp BP Pulse Ox 09/04/23 16:30 37.6 C 92 20 110/68 96 - Physical Exam General Appearance: positive: No acute distress, Alert Eyes Bilateral: positive: PERRL, EOMI Respiratory: positive: No respiratory distress Abdomen: positive: No distention Skin: positive: Other (left buttock open 3 cm wound that tracts 8 cm to bone. 1 x 3 to 4 cm induration present. scant adipose tissue. no cellulitis) Conclusion/Plan - Problem List (1) Local infection of the skin and subcutaneous tissue, unspecified Conclusion/Plan: open left buttock pressure ulcer without abscess and significant necrotic tissue. mild induration and scant fat necrosis present. tracts to bone and purulence present adjacent to bone he does not require surgical debridement at this time. recommend ID consult and plastic surgery consult.
[2023-09-04 18:00] LABS: BASOPHILS # (AUTO) 0.1 10^3/uL (0.0-0.1); BASOPHILS % (AUTO) 0.7 %; EOSINOPHILS # (AUTO) 0.3 10^3/uL (0.0-0.7); EOSINOPHILS % (AUTO) 2.1 %; HCT - HEMATOCRIT 43.1 % (42.0-52.0); HGB - HEMOGLOBIN 14.2 g/dL (14.0-18.0); LYMPHOCYTES # (AUTO) 2.2 10^3/uL (1.5-3.5); LYMPHOCYTES % (AUTO) 17.7 %; MEAN CORPUSCULAR HEMOGLOBIN 28.4 pg (27.0-31.0); MEAN CORPUSCULAR HGB CONC 32.9 g/dL (32.0-36.0); MEAN CORPUSCULAR VOLUME 86.2 fL (80.0-94.0); MEAN PLATELET VOLUME 9.2 fL (7.4-11.4); MONOCYTES # (AUTO) 1.2 10^3/uL (0.0-1.0); MONOCYTES % (AUTO) 9.9 %; NEUTROPHILS # (AUTO) 8.6 10^3/uL (1.5-6.6); NEUTROPHILS % (AUTO) 68.5 %; PLT - PLATELET COUNT 374 10^3/uL (130-450); RED CELL DISTRIBUTION WIDTH 11.7 % (12.0-15.0); WHITE BLOOD COUNT 12.6 x10^3/uL (4.8-10.8)
[2023-09-04] MEDS: HYDROmorphone 1 MG/ML CARPUJECT IVP STA (19:17)
[2023-09-04] MEDS: cefTRIAXone 2 GM in SODIUM CHLORIDE 0.9% MINIBAG 100 ML IV STA (19:22)
--- NOTE | 2023-09-04 19:29 | ED Physician Documentation ---
History of Present Illness - Stated complaint Stated Complaint: PRESSURE INJ - Chief complaint Chief Complaint: Wound - History obtained from History obtained from: Patient, Family - Additonal information Additional information: The patient is sent to the emergency department by Dr. Sharif of Wound Care for chief complaint of failure of outpatient antibiotics for left sided ischial decubitus ulcer. The patient is a quadriplegic and has had the ulcer for about 6 weeks. He had a debridement a couple of weeks ago and since then, the wound has become deeper and had a persistent, foul-smelling purulent drainage. The patient has began to have chills and shakes though he has not been able to measure any fevers. He states that he has started to not feel well. Dr. Sharif has ordered an MRI for Friday but has become concerned that the patient should not wait that long, as the wound seems to be notably worse. He has requested that the patient be admitted to the hospital for initiation of IV antibiotics, PICC line placement, surgical consultation, and possibly expedition of MRI. PD PAST MEDICAL HISTORY - Past Medical History Cardiovascular: None Respiratory: Sleep apnea, CPAP use Neuro: Other Endocrine/Autoimmune: Type 2 diabetes GI: GERD : Indwelling catheter, Kidney stones HEENT: Chronic vision loss Psych: None Musculoskeletal: Quadriplegia, Other Derm: None Other Past Medical History: pressure ulcers. 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 HEENT: Tonsil/Adenoidectomy - Present Medications Home Medications: Ambulatory Orders Medication Instructions Recorded Confirmed Baclofen 20 mg PO QID 08/03/15 08/22/23 Gabapentin [Neurontin] 300 mg PO QID 08/03/15 08/22/23 Multivitamin [Theragran] 1 tab PO DAILY 08/03/15 08/22/23 Omeprazole [PriLOSEC] 20 mg PO DAILY 08/03/15 08/22/23 Oxybutynin [Ditropan] 5 mg PO BID 08/03/15 08/22/23 tiZANidine [Zanaflex] 12 mg PO TID 08/03/15 08/22/23 Docusate Sodium 250Mg Capsule 250 mg PO BID 08/14/15 08/22/23 [Colace] Vitamin E (Dl,Tocopheryl Acet) 1 cap PO DAILY 11/01/20 08/22/23 [Vitamin E] diazePAM [Valium] 5 mg PO BID 11/01/20 08/22/23 levoFLOXacin [Levofloxacin] 750 mg PO DAILY 14 Days #14 tablet 08/20/23 08/22/23 Amoxicillin 875 mg PO BID 14 Days #28 tablet 08/29/23 - Allergies Allergies/Adverse Reactions: Allergies Allergy/AdvReac Type Severity Reaction Status Date / Time tree nut [Tree Nut] Allergy Unknown UNKNOWN Verified 09/04/23 16:34 - Social History Does the pt smoke?: No Smoking Status: Never smoker Does the pt drink ETOH?: No Does the pt have substance abuse?: No - Immunizations Immunizations are current?: Yes - POLST Patient has POLST: No PD ED PE NORMAL - Vitals Vital signs reviewed: Yes - General General: Alert and oriented X 3, No acute distress, Well developed/nourished - HEENT HEENT: Atraumatic, PERRL, EOMI, Moist mucous membranes - Neck Neck: Supple, no meningeal sign - Cardiac Cardiac: RRR, No murmur - Respiratory Respiratory: No respiratory distress, Clear bilaterally - Abdomen Abdomen: Soft, Non tender, Non distended - Derm Derm: Normal color, Warm and dry, Other (5 cm diameter, deep stage IV ulcer over the inferior region of the patient's left buttock with constant foul-smelling purulent drainage, which can be expressed by pushing on the bone and the depth of the wound.) - Extremities Extremities: No deformity - Neuro Neuro: Alert and oriented X 3 - Psych Psych: Normal mood, Normal affect Results - Vitals Vitals: Vital Signs - 24 hr 09/04/23 09/04/23 16:30 18:33 Temperature 37.6 C Heart Rate 92 107 H Respiratory 20 16 Rate Blood Pressure 110/68 128/80 O2 Saturation 96 98 Oxygen O2 Source Room air - Labs Labs: Laboratory Tests 09/04/23 09/04/23 09/04/23 17:10 17:10 17:10 WBC 12.6 H RBC 5.00 Hgb 14.2 Hct 43.1 MCV 86.2 MCH 28.4 MCHC 32.9 RDW 11.7 L Plt Count 374 MPV 9.2 Neut # (Auto) 8.6 H Lymph # (Auto) 2.2 [place] # (Auto) 1.2 H Eos # (Auto) 0.3 Baso # (Auto) 0.1 Absolute Nucleated RBC 0.00 Nucleated RBC % 0.0 ESR 55 H C-Reactive Protein 9.6 H PD Medical Decision Making - ED course Complexity details: reviewed old records, reviewed results, re-evaluated patient, considered differential, d/w patient, d/w family, d/w csm consultant ED course: The patient was worked up with laboratory studies which showed an elevated white blood cell count 13, ESR of 55 and CRP of 9.6. He was unable to get MRI this evening in the emergency department As he was not transferred here until very late in the afternoon. I did consult Dr. Sterling who is on-call for surgery, and he did not feel that he could be surgically involved with this wound. I have discussed the case with the on-call hospitalist as this patient has failed outpatient care and needs to have initiation of IV antibiotics, PICC line placement, possible ID consultation, and perhaps surgical reconsultation. Furthermore, given the exceedingly difficult transfer situation [facility], it is highly unlikely that this patient would be able to be transferred to a facility with either ID or plastic surgery, and so initiation of at least these measures is in the patient's best interest for now. The on- call telehospitalist has agreed to admit the patient to the service for observation. Patient and his family expressed understanding and agreement. Departure - Departure Disposition: ED Place in Observation Clinical Impression: Stage 4 pressure ulcer Qualifiers: Pressure injury location: buttock Laterality: left Qualified Code(s): L89.324 - Pressure ulcer of left buttock, stage 4 Osteomyelitis Qualifiers: Osteomyelitis type: unspecified type Osteomyelitis location: other site Qualified Code(s): M86.9 - Osteomyelitis, unspecified Condition: Serious Forms: PCP List
[2023-09-04] MEDS: metroNIDAZOLE 500 MG/100 ML 500 MG/100 ML BAG IV ONE (19:41)
[2023-09-04] MEDS ORDERED: ONDANSETRON 4 MG/2 ML VIAL IVP PRN (19:43)
[2023-09-04] MEDS ORDERED: polyethylene glycoL 3350 17 GM PACKET PO PRN (19:43)
[2023-09-04] MEDS ORDERED: HYDROcod/ACETAM 5/325 MG TABLET PO PRN (19:43)
[2023-09-04] MEDS ORDERED: ACETAMINOPHEN 325 MG TABLET PO PRN (19:43)
--- NOTE | 2023-09-04 20:09 | HISTORY & PHYSICAL EXAMINATION ---
Chief Complaint - Chief Complaint Chief Complaint: infected left buttock decubitus ulcer History of Present Illness - Admitted From Admitted From:: ED - History Obtained From Records Reviewed: EMR History obtained from: Patient and ED staff Exam Limitations: Tele Medicine - History of Present Illness HPI Comment/Other: [id number] c quadriplegia and chronic decubitus ulcer of the left buttock who presents to the ED due to infected decubitus ulcer failing outpatient management. Patient is sent to the emergency department by Dr. Sharif of Wound Care for chief complaint of failure of outpatient antibiotics for left sided ischial decubitus ulcer. The patient is a quadriplegic and has had the ulcer for about 6 weeks. He had a debridement a couple of weeks ago and since then, the wound has become deeper and had a persistent, foul-smelling purulent drainage starting this past week. The patient has began to have chills and shakes though he has not been able to measure any fevers for past 3 days. He states that he has started to not feel well and had nausea as well. Dr. Sharif has ordered an MRI for Friday but has become concerned that the patient should not wait that long, as the wound seems to be notably worse. He has requested that the patient be admitted to the hospital for initiation of IV antibiotics, PICC line placement, surgical consultation, and possibly expedition of MRI. Patient reports prior hx of decubitus ulcer 12 yrs ago requiring plastic surgery on the right side. No URI sxs. No vomiting. No diarrhea. No chest pain. No SOB. No swelling. In the ED, patient was seen by Gen surgeon project management consultant and recommended to proceed with ID and Plastics consult. Hospital Medicine spoke to ED staff about this issue and ED staff relayed that patient will not get transferred due to need for ID/Plastic consult. Hence, Hospital Medicine will start management for now and d/w patient that there will likely be need for surgical intervention later with plastics at a different hospital in the future. History - Past Medical History Cardiovascular: reports: None Respiratory: reports: Sleep apnea, CPAP use Neuro: reports: Other Endocrine/Autoimmune: reports: Type 2 diabetes GI: reports: GERD : reports: Indwelling catheter, Kidney stones HEENT: reports: Chronic vision loss Psych: reports: None Musculoskeletal: reports: Quadriplegia, Other Derm: reports: None MRSA Hx?: Yes Other Past Medical History: pressure ulcers. 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 - Substance History Use: Uses substance without health or social issues: Alcohol - POLST Patient has POLST: No Meds/Allgy - Home Medications Home Medications: Ambulatory Orders Medication Instructions Recorded Confirmed Baclofen 20 mg PO QID 08/03/15 08/22/23 Gabapentin [Neurontin] 300 mg PO QID 08/03/15 08/22/23 Multivitamin [Theragran] 1 tab PO DAILY 08/03/15 08/22/23 Omeprazole [PriLOSEC] 20 mg PO DAILY 08/03/15 08/22/23 Oxybutynin [Ditropan] 5 mg PO BID 08/03/15 08/22/23 tiZANidine [Zanaflex] 12 mg PO TID 08/03/15 08/22/23 Docusate Sodium 250Mg Capsule 250 mg PO BID 08/14/15 08/22/23 [Colace] Vitamin E (Dl,Tocopheryl Acet) 1 cap PO DAILY 11/01/20 08/22/23 [Vitamin E] diazePAM [Valium] 5 mg PO BID 11/01/20 08/22/23 levoFLOXacin [Levofloxacin] 750 mg PO DAILY 14 Days #14 tablet 08/20/23 08/22/23 Amoxicillin 875 mg PO BID 14 Days #28 tablet 08/29/23 - Allergies Allergies/Adverse Reactions: Allergies Allergy/AdvReac Type Severity Reaction Status Date / Time tree nut [Tree Nut] Allergy Unknown UNKNOWN Verified 09/04/23 16:34 Review of Systems - Other Findings Other Findings: negative unless mentioned differently Exam - Vital Signs Reviewed Vital Signs: Yes Vital Signs: Vital Signs x48h Temp Pulse Resp BP Pulse Ox 09/04/23 18:33 107 H 16 128/80 98 09/04/23 16:30 37.6 C 92 20 110/68 96 - Physical Exam General Appearance: positive: No acute distress Eyes Bilateral: positive: Normal inspection ENT: positive: ENT inspection nml Neck: positive: Nml inspection Skin: positive: Color nml, Other (unable to view ulcer from telemedicine. refer to picture instead) Neurologic/Psychiatric: positive: Oriented x3, CN's nml (2-12) Conclusion/Plan - Problem List (1) Sepsis Conclusion/Plan: mild tachycardia and mild leukocytosis with infected stage 4 decubitus ulcer = sepsis. check lactic acid. iv fluid NS bolus. empiric abx. followup cultures. (2) Stage 4 pressure ulcer Conclusion/Plan: failed outpatient management. covering with empiric iv abx. prior wound culture reviewed and noted strep caraballo sensitive. r/o MRSA. wound consult. MRI r/o osteo. reviewed gen surg recommendation. suspect will need surgical intervention- plastics in the future. see d/w ED staff in HPI regarding inability to transfer for plastic consult. Qualifiers: Pressure injury location: buttock Laterality: left Qualified Code(s): L89.324 - Pressure ulcer of left buttock, stage 4 (3) Quadriplegia, C1-C4 incomplete Conclusion/Plan: restart home muscle relaxant medications. added additional acetaminophen and norco for pain control. fall precaution. HOB>30 for aspiration precaution. - Lab Results Lab results reviewed: Yes Fish Bones: 09/04/23 17:10 - Other Other Results/Comments: Full code Aunt is POA SCDs and Lovenox for DVT PPX Inpatient Core Measures - Anticipated LOS I expect patient to be DC'd or transferred within 96 hours.: No - Issues Hospital Issues and Management Plan: The patient consented to receive this telemedicine service, which I performed via live two-way audiovisual equipment. The patient is at ([facility]) and I am physically in [facility]. - DVT/VTE - Prophylaxis VTE/DVT Device ordered at admit?: Yes Telemedicine Consult Details - Provider Location & Consult Time Telemedicine consultation conducted via videoconferencing?: Yes List names and roles of persons who participated in consult:: ED, patient, and aunt Telemedicine provider location:: [facility] Time Telemedicine consult began:: 19:21 Time Telemedicine consult completed:: 20:26
[2023-09-04] MEDS: VANCOMYCIN INJ 2 GM in SODIUM CHLORIDE 0.9% 500 ML IV STA (20:42)
[2023-09-04] MEDS: SODIUM CHLORIDE 0.9% 500 ML IV ONE (21:19)
[2023-09-04] MEDS: BACLOFEN 10 MG TABLET PO SCH (21:35)
[2023-09-04] MEDS: DOCUSATE SODIUM 250 MG CAPSULE PO SCH (21:36)
[2023-09-04] MEDS: diazePAM 5 MG TABLET PO SCH (21:36)
[2023-09-04] MEDS: tiZANidine 4 MG TABLET PO SCH (21:36)
[2023-09-04] MEDS: GABAPENTIN 300 MG CAPSULE PO SCH (21:36)
[2023-09-04] MEDS: HEPARIN 5,000 UNIT/ML VIAL SUBQ SCH (21:39)
[2023-09-04] MEDS: NON FORMULARY MED (Oxybutynin [Ditropan] 5 MG Tablet) PO SCH (22:11)
[2023-09-05] MEDS: SODIUM CHLORIDE FLUSH 0.9% 10 ML SYRINGE IVP SCH (01:19)
[2023-09-05] MEDS: SODIUM CHLORIDE FLUSH 0.9% 10 ML SYRINGE IVP PRN (05:52)
[2023-09-05 06:29] LABS: BASOPHILS # (AUTO) 0.1 10^3/uL (0.0-0.1); BASOPHILS % (AUTO) 0.7 %; EOSINOPHILS # (AUTO) 0.2 10^3/uL (0.0-0.7); HCT - HEMATOCRIT 39.4 % (42.0-52.0); HGB - HEMOGLOBIN 13.1 g/dL (14.0-18.0); LYMPHOCYTES # (AUTO) 1.5 10^3/uL (1.5-3.5); LYMPHOCYTES % (AUTO) 14.8 %; MEAN CORPUSCULAR HEMOGLOBIN 28.2 pg (27.0-31.0); MEAN CORPUSCULAR HGB CONC 33.2 g/dL (32.0-36.0); MEAN CORPUSCULAR VOLUME 84.7 fL (80.0-94.0); MEAN PLATELET VOLUME 9.9 fL (7.4-11.4); MONOCYTES # (AUTO) 0.8 10^3/uL (0.0-1.0); MONOCYTES % (AUTO) 7.5 %; NEUTROPHILS # (AUTO) 7.6 10^3/uL (1.5-6.6); NEUTROPHILS % (AUTO) 73.9 %; PLT - PLATELET COUNT 281 10^3/uL (130-450); RED BLOOD COUNT 4.65 10^6/uL (4.70-6.10); RED CELL DISTRIBUTION WIDTH 11.6 % (12.0-15.0); WHITE BLOOD COUNT 10.3 x10^3/uL (4.8-10.8)
[2023-09-05] MEDS: ceFAZolin (2G) 2 GM in SODIUM CHLORIDE 0.9% MINIBAG 100 ML IV SCH (06:30)
[2023-09-05] MEDS: PANTOPRAZOLE 40 MG TABLET PO SCH (06:31)
[2023-09-05 06:36] LABS: MAGNESIUM 1.7 mg/dL (1.7-2.3)
[2023-09-05 06:42] LABS: BUN - BLOOD UREA NITROGEN 11 mg/dL (6-20); CALCIUM 8.6 mg/dL (8.5-10.3); CARBON DIOXIDE - CO2 25 mmol/L (21-32); CHLORIDE 98 mmol/L (101-111); CHOL/HDL RATIO 7.1 (<5.0); CHOLESTEROL 135 mg/dL; CREATININE 0.6 mg/dL (0.6-1.3); GFR - MDRD 143 (>89); GLUCOSE 399 mg/dL (74-104); HDL CHOLESTEROL 19 mg/dL; LDL CHOLESTEROL,CALCULATED 95 mg/dL; PHOSPHORUS 2.6 mg/dL (2.5-5.0); POTASSIUM 3.7 mmol/L (3.5-4.5); SODIUM 132 mmol/L (135-145); TRIGLYCERIDES 107 mg/dL (48-352); VLDL CHOLESTEROL 21 mg/dL
[2023-09-05 06:58] LABS: SLIDE REVIEW? Indicated
[2023-09-05 07:37] LABS: THYROID STIMULATING HORMONE 1.38 uIU/mL (0.34-5.60)
[2023-09-05] MEDS: MULTIVITAMIN TABLET PO SCH (09:30)
[2023-09-05] MEDS: LACTOBACILLUS RHAMNOSUS GG CAPSULE PO SCH (09:30)
[2023-09-05] MEDS: SOLIFENACIN SUCCINATE 5 MG TABLET PO SCH (09:30)
[2023-09-05 09:32] LABS: INFLUENZA A- RESP PCR PANEL NOT DETECTED; INFLUENZA B - RESP PCR PANEL NOT DETECTED; RSV- RESP PCR PANEL NOT DETECTED; SARS-CoV-2 -RESP PCR PANEL NOT DETECTED
[2023-09-05] MEDS ORDERED: GADOTERATE MEGLUMINE 10 MMOL/20 ML VIAL ONE (11:04)
[2023-09-05 13:40] LABS: ESTIMATED AVERAGE GLUCOSE 232 mg/dL (70-100); HEMOGLOBIN A1c% 9.7 % (4.27-6.07)
[2023-09-05] MEDS: CHOLECALCIFEROL 25 MCG TABLET PO SCH (13:51)
[2023-09-05] MEDS: CYANOCOBALAMIN 500 MCG TABLET PO SCH (13:51)
--- NOTE | 2023-09-05 15:19 | PHARMACY PROGRESS NOTE ---
- Therapy Status Vancomycin regimen day #: 2 Therapy status: Awaiting steady state Basis for treatment: Empirical Treatment indication: CHRONIC DECUBITUS ULCER OF THE BUTTOCK Trough goal: 10-15 Concurrent antibiotics: Unasyn - MARLENE Risk Risk level for Acute Kidney Injury: Moderate Acute Kidney Injury risk factors: Other nephrotoxic agents - Monitoring and Recommendation Clinical response to treatment: I&O Previous 24 hours 09/03/23 09/04/23 09/05/23 23:59 23:59 23:59 Intake Total 100 Balance 100 Lab Results 09/04/23 17:10 ESR 55 H Areas for additional monitoring: IV to PO when appropriate, Therapy de- escalation based on culture results, Acute Kidney Injury Pharmacy recommendation: Continue current regime
[2023-09-05 15:40] LABS: ESTIMATED AVERAGE GLUCOSE 235 mg/dL (70-100); HEMOGLOBIN A1c% 9.8 % (4.27-6.07)
--- NOTE | 2023-09-05 16:17 | PROVIDER PROGRESS NOTE ---
Subjective - Prog Note Date Prog Note Date: 09/05/23 Prog Note Time: 16:15 - Subjective Pt reports feeling: Improved Subjective: Tremendous improvement in sepsis symptoms. Patient had elevated lactic acid, WBC, tachycardic, and tachypnea. Sepsis criteria vitals have all stabilized and/or returned to normal. Patient had worries of his wound (ischial decubitus ulcer) that was the source of his sepsis. The wound tunneled down to bone and had developed and exudative lining to the wound. The patient was worried as to what the slough material was and if the pathology report had returned. The patient was educated on what it could potentially be and reassured that he would be notified about what the pathology report finding were. Patient was told that the process of his transfer to [facility] (potentially) has been in in itiated and he will be told when the transfer gets finalized. Patient expessed his will to be DNR. Current Medications - Current Medications Current Medications: Active Medications Acetaminophen (Acetaminophen 325 Mg Tablet) 650 mg PO Q4HR PRN PRN Reason: Pain 1 to 4, or Fever Hydrocodone Bitart/Acetaminophen (Hydrocod/Acetam 5/325 Mg Tablet) 1 tab PO Q4HR PRN PRN Reason: Pain 5 to 7 Baclofen (Baclofen 10 Mg Tablet) 20 mg PO QID [facility] Last Admin: 09/05/23 13:51 Dose: 20 mg Cholecalciferol (Cholecalciferol 25 Mcg Tablet) 50 mcg PO DAILY [facility] Last Admin: 09/05/23 13:51 Dose: 50 mcg Cyanocobalamin (Cyanocobalamin 500 Mcg Tablet) 500 mcg PO DAILY [facility] Last Admin: 09/05/23 13:51 Dose: 500 mcg Diazepam (Diazepam 5 Mg Tablet) 5 mg PO BID [facility] Last Admin: 09/05/23 09:30 Dose: 5 mg Docusate Sodium (Docusate Sodium 250 Mg Capsule) 250 mg PO BID [facility] Last Admin: 09/05/23 09:33 Dose: Not Given Gabapentin (Gabapentin 300 Mg Capsule) 300 mg PO QID [facility] Last Admin: 09/05/23 13:53 Dose: 300 mg Heparin Sodium (Porcine) (Heparin 5,000 Unit/Ml Vial) 5,000 unit SUBQ BID [facility] Last Admin: 09/05/23 10:06 Dose: 5,000 unit Ampicillin Sodium/Sulbactam (Sodium 3 gm/ Sodium Chloride) 100 mls @ 200 mls/hr IV Q6HR [facility] Vancomycin HCl 1 gm/ Sodium (Chloride) 250 mls @ 167 mls/hr IV Q8H [facility] Insulin Human Lispro (Insulin Lispro 300 Unit/3 Ml Pen) 3 - 11 unit SUBQ 0800,1200,1700,2100 [facility]; Protocol Lactobacillus Rhamnosus (Lactobacillus Rhamnosus Gg Capsule) 1 cap PO DAILY [facility] Last Admin: 09/05/23 09:30 Dose: 1 cap Multivitamins/Minerals (Multivitamin W/Minerals Tablet) 1 tab PO DAILYWM [facility] Ondansetron HCl (Ondansetron 4 Mg/2 Ml Vial) 4 mg IVP Q6HR PRN PRN Reason: Nausea / Vomiting Pantoprazole Sodium (Pantoprazole 40 Mg Tablet) 40 mg PO QDAC [facility] Last Admin: 09/05/23 06:31 Dose: 40 mg Vitamin E 200 Unit (Capsule) 1 each PO DAILY [facility] Last Admin: 09/05/23 09:30 Dose: Not Given Polyethylene Glycol (Polyethylene Glycol 3350 17 Gm Packet) 17 gm PO DAILY PRN PRN Reason: Constipation Sodium Chloride (Sodium Chloride Flush 0.9% 10 Ml Syringe) 10 ml IVP PRN PRN PRN Reason: NEEDED PER PROVIDER ORDERS Last Admin: 09/05/23 05:52 Dose: 10 ml Sodium Chloride (Sodium Chloride Flush 0.9% 10 Ml Syringe) 10 ml IVP 0100,0900,1700 [facility] Last Admin: 09/05/23 09:30 Dose: 10 ml Solifenacin (Solifenacin Succinate 5 Mg Tablet) 5 mg PO DAILY [facility] Last Admin: 09/05/23 09:30 Dose: 5 mg Tizanidine HCl (Tizanidine 4 Mg Tablet) 12 mg PO TID [facility] Last Admin: 09/05/23 13:53 Dose: 12 mg Baclofen 20 mg PO QID 08/03/15 Gabapentin [Neurontin] 300 mg PO QID 08/03/15 Multivitamin [Theragran] 1 tab PO DAILY 08/03/15 Omeprazole [PriLOSEC] 20 mg PO DAILY 08/03/15 Oxybutynin [Ditropan] 5 mg PO BID 08/03/15 tiZANidine [Zanaflex] 12 mg PO TID 08/03/15 Docusate Sodium 250Mg Capsule [Colace] 250 mg PO BID 08/14/15 Vitamin E (Dl,Tocopheryl Acet) [Vitamin E] 1 cap PO DAILY 11/01/20 diazePAM [Valium] 5 mg PO BID 11/01/20 Objective - Vital Signs/Intake & Output Reviewed Vital Signs: Yes Vital Signs: Vital Signs x48h Temp 09/05/23 14:08 36.2 C L Intake & Output: Intake & Output 09/02/23 09/03/23 09/04/23 09/05/23 23:59 23:59 23:59 23:59 Intake Total 1149.65 1910.35 Output Total 1050 2700 Balance 99.65 -789.65 - Objective General Appearance: positive: No acute distress, Alert Eyes Bilateral: positive: PERRL ENT: positive: ENT inspection nml, No signs of dehydration Neck: positive: Nml inspection, No JVD Respiratory: positive: No respiratory distress. negative: Wheezes, Rales, Rhonchi Cardiovascular: positive: Regular rate & rhythm Abdomen: positive: Non-tender, Other (protuberant abdomen) Skin: positive: Color nml, No rash, Decubitus, Other Extremities: positive: Other (pressure ulcer on left glutes sheron ischial tuberosity) Neurologic/Psychiatric: positive: Oriented x3, Other (autonomic dysreflexia) - Lab Results Fish Bones: 09/05/23 06:20 09/05/23 06:20 Other Labs: Lab Results x24hrs 09/05/23 09/05/23 09/05/23 Range/Units 08:20 06:20 06:20 WBC (4.8-10.8) x10^3/uL RBC (4.70-6.10) 10^6/uL Hgb (14.0-18.0) g/dL Hct (42.0-52.0) % MCV (80.0-94.0) fL MCH (27.0-31.0) pg MCHC (32.0-36.0) g/dL RDW (12.0-15.0) % Plt Count (130-450) 10^3/uL MPV (7.4-11.4) fL Neut # (Auto) (1.5-6.6) 10^3/uL Lymph # (Auto) (1.5-3.5) 10^3/uL Grant # (Auto) (0.0-1.0) 10^3/uL Eos # (Auto) (0.0-0.7) 10^3/uL Baso # (Auto) (0.0-0.1) 10^3/uL Absolute Nucleated RBC x10^3/uL Nucleated RBC % /100WBC Manual Slide Review ESR (0-15) mm/Hr Sodium (135-145) mmol/L Potassium (3.5-4.5) mmol/L Chloride (101-111) mmol/L Carbon Dioxide (21-32) mmol/L Anion Gap (6-13) BUN (6-20) mg/dL Creatinine (0.6-1.3) mg/dL Estimated GFR (MDRD) (>89) Glucose (74-104) mg/dL Estimat Average Glucose (70-100) mg/dL Hemoglobin A1c % (4.27-6.07) % Lactic Acid 1.3 (0.5-2.2) mmol/L Calcium (8.5-10.3) mg/dL Phosphorus (2.5-5.0) mg/dL Magnesium (1.7-2.3) mg/dL C-Reactive Protein (<0.5) mg/dL Triglycerides (48-352) mg/dL Cholesterol ( - 200) mg/dL LDL Cholesterol, Calc ( - 129) mg/dL VLDL Cholesterol mg/dL HDL Cholesterol (60 - ) mg/dL LDL/HDL Ratio (<3.6) Cholesterol/HDL Ratio (<5.0) Vitamin B12 216 (180-914) pg/mL TSH (0.34-5.60) uIU/mL Nasal Influenza B PCR NOT DETECTED Nasal Influenza A PCR NOT DETECTED Nasal RSV (PCR) NOT DETECTED Nasal Screen MRSA (PCR) (NEGATIVE) Nasal SARS-CoV-2 (PCR) NOT DETECTED 09/05/23 09/05/23 09/05/23 Range/Units 06:20 06:20 06:20 WBC 10.3 (4.8-10.8) x10^3/uL RBC 4.65 L (4.70-6.10) 10^6/uL Hgb 13.1 L (14.0-18.0) g/dL Hct 39.4 L (42.0-52.0) % MCV 84.7 (80.0-94.0) fL MCH 28.2 (27.0-31.0) pg MCHC 33.2 (32.0-36.0) g/dL RDW 11.6 L (12.0-15.0) % Plt Count 281 (130-450) 10^3/uL MPV 9.9 (7.4-11.4) fL Neut # (Auto) 7.6 H (1.5-6.6) 10^3/uL Lymph # (Auto) 1.5 (1.5-3.5) 10^3/uL Grant # (Auto) 0.8 (0.0-1.0) 10^3/uL Eos # (Auto) 0.2 (0.0-0.7) 10^3/uL Baso # (Auto) 0.1 (0.0-0.1) 10^3/uL Absolute Nucleated RBC 0.00 x10^3/uL Nucleated RBC % 0.0 /100WBC Manual Slide Review Indicated ESR (0-15) mm/Hr Sodium 132 L (135-145) mmol/L Potassium 3.7 (3.5-4.5) mmol/L Chloride 98 L (101-111) mmol/L Carbon Dioxide 25 (21-32) mmol/L Anion Gap 9.0 (6-13) BUN 11 (6-20) mg/dL Creatinine 0.6 (0.6-1.3) mg/dL Estimated GFR (MDRD) 143 (>89) Glucose 399 H (74-104) mg/dL Estimat Average Glucose 232 H (70-100) mg/dL Hemoglobin A1c % 9.7 H (4.27-6.07) % Lactic Acid (0.5-2.2) mmol/L Calcium 8.6 (8.5-10.3) mg/dL Phosphorus 2.6 (2.5-5.0) mg/dL Magnesium 1.7 (1.7-2.3) mg/dL C-Reactive Protein (<0.5) mg/dL Triglycerides 107 (48-352) mg/dL Cholesterol 135 ( - 200) mg/dL LDL Cholesterol, Calc 95 ( - 129) mg/dL VLDL Cholesterol 21 mg/dL HDL Cholesterol 19 L (60 - ) mg/dL LDL/HDL Ratio 5.0 (<3.6) Cholesterol/HDL Ratio 7.1 (<5.0) Vitamin B12 (180-914) pg/mL TSH 1.38 (0.34-5.60) uIU/mL Nasal Influenza B PCR Nasal Influenza A PCR Nasal RSV (PCR) Nasal Screen MRSA (PCR) (NEGATIVE) Nasal SARS-CoV-2 (PCR) 09/04/23 09/04/23 09/04/23 Range/Units 21:30 21:27 17:10 WBC (4.8-10.8) x10^3/uL RBC (4.70-6.10) 10^6/uL Hgb (14.0-18.0) g/dL Hct (42.0-52.0) % MCV (80.0-94.0) fL MCH (27.0-31.0) pg MCHC (32.0-36.0) g/dL RDW (12.0-15.0) % Plt Count (130-450) 10^3/uL MPV (7.4-11.4) fL Neut # (Auto) (1.5-6.6) 10^3/uL Lymph # (Auto) (1.5-3.5) 10^3/uL Grant # (Auto) (0.0-1.0) 10^3/uL Eos # (Auto) (0.0-0.7) 10^3/uL Baso # (Auto) (0.0-0.1) 10^3/uL Absolute Nucleated RBC x10^3/uL Nucleated RBC % /100WBC Manual Slide Review ESR (0-15) mm/Hr Sodium (135-145) mmol/L Potassium (3.5-4.5) mmol/L Chloride (101-111) mmol/L Carbon Dioxide (21-32) mmol/L Anion Gap (6-13) BUN (6-20) mg/dL Creatinine (0.6-1.3) mg/dL Estimated GFR (MDRD) (>89) Glucose (74-104) mg/dL Estimat Average Glucose (70-100) mg/dL Hemoglobin A1c % (4.27-6.07) % Lactic Acid 2.3 H (0.5-2.2) mmol/L Calcium (8.5-10.3) mg/dL Phosphorus (2.5-5.0) mg/dL Magnesium (1.7-2.3) mg/dL C-Reactive Protein 9.6 H (<0.5) mg/dL Triglycerides (48-352) mg/dL Cholesterol ( - 200) mg/dL LDL Cholesterol, Calc ( - 129) mg/dL VLDL Cholesterol mg/dL HDL Cholesterol (60 - ) mg/dL LDL/HDL Ratio (<3.6) Cholesterol/HDL Ratio (<5.0) Vitamin B12 (180-914) pg/mL TSH (0.34-5.60) uIU/mL Nasal Influenza B PCR Nasal Influenza A PCR Nasal RSV (PCR) Nasal Screen MRSA (PCR) NEGATIVE (NEGATIVE) Nasal SARS-CoV-2 (PCR) 09/04/23 09/04/23 Range/Units 17:10 17:10 WBC 12.6 H (4.8-10.8) x10^3/uL RBC 5.00 (4.70-6.10) 10^6/uL Hgb 14.2 (14.0-18.0) g/dL Hct 43.1 (42.0-52.0) % MCV 86.2 (80.0-94.0) fL MCH 28.4 (27.0-31.0) pg MCHC 32.9 (32.0-36.0) g/dL RDW 11.7 L (12.0-15.0) % Plt Count 374 (130-450) 10^3/uL MPV 9.2 (7.4-11.4) fL Neut # (Auto) 8.6 H (1.5-6.6) 10^3/uL Lymph # (Auto) 2.2 (1.5-3.5) 10^3/uL Grant # (Auto) 1.2 H (0.0-1.0) 10^3/uL Eos # (Auto) 0.3 (0.0-0.7) 10^3/uL Baso # (Auto) 0.1 (0.0-0.1) 10^3/uL Absolute Nucleated RBC 0.00 x10^3/uL Nucleated RBC % 0.0 /100WBC Manual Slide Review ESR 55 H (0-15) mm/Hr Sodium (135-145) mmol/L Potassium (3.5-4.5) mmol/L Chloride (101-111) mmol/L Carbon Dioxide (21-32) mmol/L Anion Gap (6-13) BUN (6-20) mg/dL Creatinine (0.6-1.3) mg/dL Estimated GFR (MDRD) (>89) Glucose (74-104) mg/dL Estimat Average Glucose (70-100) mg/dL Hemoglobin A1c % (4.27-6.07) % Lactic Acid (0.5-2.2) mmol/L Calcium (8.5-10.3) mg/dL Phosphorus (2.5-5.0) mg/dL Magnesium (1.7-2.3) mg/dL C-Reactive Protein (<0.5) mg/dL Triglycerides (48-352) mg/dL Cholesterol ( - 200) mg/dL LDL Cholesterol, Calc ( - 129) mg/dL VLDL Cholesterol mg/dL HDL Cholesterol (60 - ) mg/dL LDL/HDL Ratio (<3.6) Cholesterol/HDL Ratio (<5.0) Vitamin B12 (180-914) pg/mL TSH (0.34-5.60) uIU/mL Nasal Influenza B PCR Nasal Influenza A PCR Nasal RSV (PCR) Nasal Screen MRSA (PCR) (NEGATIVE) Nasal SARS-CoV-2 (PCR) ABX Reporting Has patient been on IV antibiotics over the past 48 hours?: No Assessment/Plan - Problem List (1) Sepsis Impression: Conclusion/Plan: mild tachycardia and mild leukocytosis with infected stage 4 decubitus ulcer = sepsis. check lactic acid. iv fluid NS bolus. empiric abx. followup cultures. Today- lactic acid and WBW normalized sepsis is resolved, see plan below (2) Stage 4 pressure ulcer Conclusion/Plan: failed outpatient management. covering with empiric iv abx. prior wound culture reviewed and noted strep caraballo sensitive. r/o MRSA. wound consult. MRI r/o osteo. reviewed gen surg recommendation. suspect will need surgical intervention- plastics in the future. see d/w ED staff in HPI regarding inability to transfer for plastic consult. Given vancomycin, ceftriaxone, and flagyl in the ED yesterday. Today he was switched to vancomycin and unasyn. Continue abx therapy for the next 5-7 days Plan to transfer to [facility] Qualifiers: Pressure injury location: buttock Laterality: left Qualified Code(s): L89.324 - Pressure ulcer of left buttock, stage 4 (3) Quadriplegia, C1-C4 incomplete Conclusion/Plan: D/t diving in to the shallow end of a pool @ 25 years old restart home muscle relaxant medications. added additional acetaminophen and norco for pain control. fall precaution. HOB>30 for aspiration precaution. (4) Type 2 DM Uncontrolled hyperglycemia with an A1c 0f 9.8 Today start sliding scale insulin and will continue to monitor
[2023-09-05] MEDS: GADOTERATE MEGLUMINE 10 MMOL/20 ML VIAL IVP ONE (16:34)
--- NOTE | 2023-09-05 16:56 | PHARMACY PROGRESS NOTE ---
- Best Possible Medication History Admit Date and Time: 09/04/232008 Processed by: Pharmacy Medications reviewed in ED?: No Medication History completed: Yes Patient Interview: Completed Secondary Source(s): Insurance records (Per patient, he has not been taking MV, vitamin E, or colace.) As the person ultimately responsible for medication therapy, providers are able to order a medication from an existing home medication list in [facility] via the "Reconcile Routine" prior to Confirmation of that medication by senior administrator support. Such practice is discouraged except when the physician, in their clinical judgment, deems that a medical need exists for a medication without regard to previous use.
[2023-09-05] MEDS: CYANOCOBALAMIN 1,000 MCG/ML VIAL IM ONE (17:01)
[2023-09-05] MEDS: VANCOMYCIN INJ 1 GM in SODIUM CHLORIDE 0.9% 250 ML IV SCH (17:02)
[2023-09-05] MEDS: INSULIN LISPRO 300 UNIT/3 ML PEN SUBQ SCH (17:02)
--- NOTE | 2023-09-05 17:13 | MRI Report ---
PROCEDURE: Pelvis W/WO INDICATIONS: rule out pelvic osteo TECHNIQUE: Noncontrast coronal T1 spin echo and STIR, sagittal T1 spin echo with fat saturation and STIR, axial T1 spin echo and T2 fast spin echo with fat saturation. After the administration of contrast, axial/ sagittal/coronal T1 spin echo with fat saturation through the pelvis. COMPARISON: Pelvic radiograph dated 08/27/2023. FINDINGS: Image quality: Excellent. Bones: There is marrow edema involving left inferior pubic ramus extending to the left ischial tubero sity. Previous contrast enhancement is also noted within this area. No other area of abnormal marrow edema or enhancement is seen. Bilateral hip joint osteoarthritic changes are noted with joint space n arrowing and small marginal osteophyte formation. No evidence of avascular necrosis of femoral head. The visualized lower lumbar spine is normally aligned. Soft tissues:. There is ulceration involving inferior medial left upper thigh extending to left perin eum and left ischial tuberosity posterior to the hamstring tendon origins. Heterogeneous contrast enh ancement is noted in this area. No discrete drainable peripherally enhancing fluid collection is note d. There is significant edema involving medial portion of left gluteus medius and sheron muscles. No intramuscular fluid collection. Edema involving bilateral adductor Caridad muscles are seen without abnormal contrast enhancement. No pelvic free fluid. Suprapubic tube is seen, and is within a decompr essed urinary bladder lumen. No gross peritoneal abscess collection. IMPRESSION: 1. Full-thickness ulceration involving left posterior medial upper thigh extending to left perineum w ith extensive surrounding cellulitis. Myositis involving adjacent left gluteus sheron and medius mus cles as above. No discrete drainable soft tissue or intramuscular abscess collection. No enhancing so ft tissue mass. 2. Suggestion of bilateral abductor agusto muscle strain/intrasubstance partial thickness tear. 3. Finding is consistent with osteomyelitis involving left inferior pubic ramus extending to left isc hial tuberosity. No other area of osteomyelitis is seen. No suspicious bony lesions. No fracture or d islocation. Reviewed by: Matt Huizar MD on 09/05/2023 5:12 PM PDT Approved by: Matt Huizar MD on 09/05/2023 5:12 PM PDT Station ID: [id number]
[2023-09-05] MEDS ORDERED: AMPICILLIN/SULBACTAM 3 GM in SODIUM CHLORIDE 0.9% MINIBAG 100 ML IV SCH (18:00)
--- NOTE | 2023-09-05 18:37 | DISCHARGE SUMMARY ---
Discharge Summary Admit Date: 09/04/23 Discharge Date: 09/05/23 Discharging Provider: Adeola Rothman MD Primary Care Provider: Thania Turner MD Code Status: Do Not Attempt Resuscitation Condition at Discharge: Serious - DIAGNOSES Discharge Diagnoses with Status of Each Condition: 1. Sepsis due to soft tissue infection, resolved sepsis criteria 2. Stage IV pressure ulcer left hip 3. Quadriplegia, C1-C4 incomplete 4. Type 2 diabetes mellitus, uncontrolled with hyperglycemia, no complications 5. History of right hip pressure ulcer 12 years ago 6. Autonomic dysreflexia 7. Obstructive sleep apnea with CPAP use 8. Chronic indwelling Galdamez catheter 9. History of kidney stones 10. GERD 11. Lack of IV access - HPI History of Present Illness: This rika gentleman is 47 years old and has has an incomplete C-spine quadriplegia. He dove into a shallow end of a pool at the age of 25. Complications have included in breakdown with decubitus ulcers. He had a large decubitus ulcer on the right hip 12 years ago that was taken care of at [facility]. He says that he has a urologist at [facility]. He is a chronic indwelling Galdamez catheter. He gets easily autonomic dysreflexia. His calves are contracted and toes now point downward. He lives in his own home. He has caregivers that come 3 times a day and he is alone a few hours at a time. He does get home health PT and OT. He also sees wound clinic here locally. With the contractures of his calves and his toes pointing down more, new equipment was used to see if they could help with the contractures, and the new equipment caused new pressure on the part of his left hip that was not used to it. Over the last few weeks he has developed a pressure ulcer that is gotten deeper and deeper. Seen by wound clinic 2 weeks ago and debrided. Then seen by wound clinic again on the day of admission and the wound had completely deteriorated with foul-smelling exudative mass. He was having rigors and chills and as such sent to the ER. He met criteria for sepsis with the source of infection being a left hip ulcer down to bone. Our ER doctor contacted general surgery. Our general surgeon cannot handle this. He says that this patient will require extensive debridement, surgical removal of quite a bit of slough, and most likely a reconstruction with plastics. Although the wound in diameter is not more than 3 to 4 cm, the wound and depth is probably down to 6 cm. There is yellow slough covering quite a bit of medium muscle. However the ER doctor felt that she could not attempt transfer in the late evening. As such she asked the telemedicine hospitalist to admit the patient overnight. Stabilize the sepsis criteria. And in the morning start the process of getting this patient transferred. - CONSULTS | PROCEDURES Consultations: Anesthesia for central line, general surgery in the ER Procedures: Pelvis MRI with full-thickness ulceration involving the left posterior medial upper thigh extending to the left perineum with extensive surrounding cellulitis. Myositis is in the adjacent left gluteus sheron and medius muscles. No discrete drainable soft tissue or intramuscular abscess. Suggestion of bilateral abductor agusto muscle strain and partial-thickness tear. He has osteomyelitis involving the left inferior pubic ramus extending to the left ischial tuberosity. Chest x-ray done after central line shows line in place. Mild appearance of increased pulmonary vascularity, no pneumothorax. Central line placement with anesthesia - HOSPITAL COURSE Hospital Course: The patient is antibiotic treatment has been chaotic on the part of the hospitalist service. In the ER he was given vancomycin, ceftriaxone, metronidazole. The night time hospitalist gave him Ancef. I am the daytime hospitalist and I changed him to Unasyn and vancomycin. This is a gentleman who has diabetes. He tells us that he is only "borderline". But although today his sugars were 230-358. A1c is 9.8%. To start him on sliding scale insulin. White cell count is gone from 12.6-10.3. Lactic acid was 2.3 and is now 1.3. Vitamin B12 is 216, TSH 1.38. Access was difficult so I had anesthesia come in and put in a central line. I discussed the case with his aunt who is his DPOA, and the patient. He is awake, alert, and decisional. A lucid historian. He would like to be DO NOT RESUSCITATE when we discussed CODE STATUS. This came about by discussion of what resuscitation meant and what it would look like. If he did survive the event, quality of life would be even further diminished in my opinion. On the basis that he does not want to be resuscitated. I was able to speak to the [facility] transfer center. They were very helpful, and frequently called to update me on the process. Dr. Tigre Pérez accepted the patient in transfer. He is surgery. He felt that if the patient was sick enough to be transferred to [facility] he wanted the patient transferred via airlift. I did explain that the patient's sepsis criteria have resolved. But nevertheless he wanted airlift. On examination this gentleman is 36.5 temp. Heart rate 95. Blood pressure 101/65. Respirations 16. 98% on room air. He is 5 foot 8 inches tall, 91.7 kg. Morbidly obese. Alert and oriented to person, place, time and situation. He is decisional. During my exam, and watching get transferred from the [facility] to the bed [facility], he has involuntary spasms of his entire body. He says that he gets easily autonomic dysreflexia. Currently denies headache and he does not have hypertension. He has diminished breath sounds at the bases with slow, shallow, unlabored respiration. Abdomen is hypoactive bowel sounds. Not distended. But it is obese. He has a indwelling Galdamez catheter. Scars on his right hip from previous decubiti. He has a huge large left decubitus on the left ischial tuberosity. Very deep. Yellow slough material covering some of the rolle. No surrounding cellulitis or redness. It is quite foul-smelling. The skin folds from the ischial tuberosity going toward the perineum and rectum are grayish in color, wet. But there is no redness, or fluctuance. He can use his triceps. So he can use his arms to some extent. Speech is normal. He only starts to stutter when the autonomic dysreflexia exam and is quite a bit of shaking. Greater than 30 minutes was spent coordinating discharge This document was made in part using voice recognition software. While efforts are made to proofread this document, sound alike and grammatical errors may occur. - ALLERGIES Allergies/Adverse Reactions: Allergies Allergy/AdvReac Type Severity Reaction Status Date / Time tree nut [Tree Nut] Allergy Unknown UNKNOWN Verified 09/04/23 16:34 - MEDICATIONS Home Medications: Ambulatory Orders Medication Instructions Recorded Confirmed Baclofen 20 mg PO QID 08/03/15 09/05/23 Gabapentin [Neurontin] 300 mg PO QID 08/03/15 09/05/23 Omeprazole [PriLOSEC] 20 mg PO DAILY 08/03/15 09/05/23 Oxybutynin [Ditropan] 5 mg PO BID 08/03/15 09/05/23 tiZANidine [Zanaflex] 12 mg PO TID 08/03/15 09/05/23 diazePAM [Valium] 5 mg PO BID 11/01/20 09/05/23 - LABS Result Diagrams: 09/05/23 06:20 09/05/23 06:20
[2023-09-05 18:58] VITALS: BP 101/65; O2SAT 98
--- NOTE | 2023-09-05 19:09 | ANESTHESIA PROCEDURE NOTE ---
Anesth Central Line Template - Central Line Central Line Preparation: Consent Obtained (Risks/Benefits discussed; questions answered. Patient is quadraplegic, so unable to obtain written consent; patient gave verbal consent with nurse present.), Time out completed, Ultrasound used, Sterile prep and drape Central line location: Right IJ Central line type: Triple lumen Central line catheter tip site resides: Superior vena cava (SVC) Central line aftercare: Chlorhexidine disc placed, Secured, Placement confirmed, No pneumothorax, No complications, Pt tolerated well
--- NOTE | 2023-09-05 19:13 | XRAY Report ---
PROCEDURE: Chest for Line Placement INDICATIONS: central line placement TECHNIQUE: One view of the chest was acquired. COMPARISON: None. FINDINGS: Surgical changes and devices: Right-sided central venous catheter is present overlying the distal SV C/right atrial junction. Cervical fixation plate. Lungs and pleura: Mild appearance of increased pulmonary vascularity. No pneumothorax. Mediastinum: Mediastinal contours appear normal. Heart size is enlarged. Bones and chest wall: No suspicious bony lesions. Overlying soft tissues appear unremarkable. IMPRESSION: Support line as above. Mild appearance of increased vascular suggestive of edema. Reviewed by: Evelyn Mercado MD on 09/05/2023 7:12 PM PDT Approved by: Evelyn Mercado MD on 09/05/2023 7:12 PM PDT Station ID: [id number]
--- NOTE | 2023-09-05 20:00 | Discharge Plan ---
Discharge Plan Problem Reviewed?: Yes Disposition: 02 Transfer Acute Care [facility] Condition: Serious No Smoking: If you smoke, Please STOP! Call for help. Follow-up with: Thania Turner MD [Primary Care Provider] -
[2023-09-06] MEDS ORDERED: MULTIVITAMIN W/MINERALS TABLET PO SCH (08:00)
== END 2023-09-05 19:45 | disposition short-term general hospital (02) | DRG 871 ==
LOC: ED 15:37 → MS2 20:09
PROVIDERS: ADMIT Internal Medicine; ATTEND Specialist
PROC: 02HV33Z Insertion of Infusion Device into Superior Vena Cava, Percutaneous Approach (ICD-10-PCS; principal; 2023-09-05)
DX: A41.9 Sepsis, unspecified organism (principal); G82.52 Quadriplegia, C1-C4 incomplete; L89.324 Pressure ulcer of left buttock, stage 4; E11.9 Type 2 diabetes mellitus without complications; G82.50 Quadriplegia, unspecified; L03.315 Cellulitis of perineum; L03.116 Cellulitis of left lower limb; M86.9 Osteomyelitis, unspecified; Z99.3 Dependence on wheelchair; E11.65 Type 2 diabetes mellitus with hyperglycemia; G90.4 Autonomic dysreflexia; G47.33 Obstructive sleep apnea (adult) (pediatric); K21.9 Gastro-esophageal reflux disease without esophagitis; Z96.0 Presence of urogenital implants; M60.9 Myositis, unspecified; Z66 Do not resuscitate; E66.01 Morbid (severe) obesity due to excess calories; Z68.29 Body mass index [BMI] 29.0-29.9, adult
CPT/HCPCS: 36415; 72197; 80048; 80061; 81599; 82607; 83036; 83605; 83735; 84100; 84443; 85025; 85651; 86140; 87040; 87637; 87640; 99285; A9270; A9575; J3370; 82306; 83721; 87081

== ENCOUNTER 2023-09-25 14:52 | Outpatient (CLI) | payer MEDICARE, MEDICAID ==
[2023-09-25 15:05] LABS: BASOPHILS # (AUTO) 0.1 10^3/uL (0.0-0.1); BASOPHILS % (AUTO) 0.6 %; EOSINOPHILS # (AUTO) 0.2 10^3/uL (0.0-0.7); EOSINOPHILS % (AUTO) 1.9 %; HCT - HEMATOCRIT 38.7 % (42.0-52.0); HGB - HEMOGLOBIN 12.5 g/dL (14.0-18.0); LYMPHOCYTES # (AUTO) 1.8 10^3/uL (1.5-3.5); LYMPHOCYTES % (AUTO) 20.1 %; MEAN CORPUSCULAR HEMOGLOBIN 28.2 pg (27.0-31.0); MEAN CORPUSCULAR HGB CONC 32.3 g/dL (32.0-36.0); MEAN CORPUSCULAR VOLUME 87.4 fL (80.0-94.0); MEAN PLATELET VOLUME 9.7 fL (7.4-11.4); MONOCYTES # (AUTO) 0.8 10^3/uL (0.0-1.0); MONOCYTES % (AUTO) 8.8 %; NEUTROPHILS # (AUTO) 5.9 10^3/uL (1.5-6.6); NEUTROPHILS % (AUTO) 66.8 %; PLT - PLATELET COUNT 220 10^3/uL (130-450); RED BLOOD COUNT 4.43 10^6/uL (4.70-6.10); RED CELL DISTRIBUTION WIDTH 13.7 % (12.0-15.0); WHITE BLOOD COUNT 8.9 x10^3/uL (4.8-10.8)
[2023-09-25 15:18] LABS: BILIRUBIN,DIRECT < 0.10 mg/dL (0.03-0.18)
[2023-09-25 15:24] LABS: ALKALINE PHOSPHATASE 71 IU/L (42-121); ALT ALANINE AMINOTRANSFERASE 20 IU/L (10-60); AST ASPARTATE AMINOTRANSFERASE 14 IU/L (10-42); BILIRUBIN,TOTAL 0.3 mg/dL (0.2-1.0); BUN - BLOOD UREA NITROGEN 14 mg/dL (6-20); CALCIUM 9.2 mg/dL (8.5-10.3); CARBON DIOXIDE - CO2 24 mmol/L (21-32); CHLORIDE 105 mmol/L (101-111); CREATININE 0.6 mg/dL (0.6-1.3); GFR - MDRD 143 (>89); GLUCOSE 203 mg/dL (74-104); IONIZED CALCIUM IF INDICATED NO; POTASSIUM 3.7 mmol/L (3.5-4.5); SODIUM 137 mmol/L (135-145); TOTAL PROTEIN 7.3 g/dL (6.4-8.9)
== END 2023-09-25 14:53 | disposition home or self-care (01) ==
LOC: LAB 14:52
DX: M86.159 Other acute osteomyelitis, unspecified femur (principal)
CPT/HCPCS: 36415; 80048; 80076; 85025

== ENCOUNTER 2024-01-22 14:56 | Outpatient (CLI) | payer MEDICARE, MEDICAID ==
[2024-01-22 15:12] LABS: ESTIMATED AVERAGE GLUCOSE 123 mg/dL (70-100); HEMOGLOBIN A1c% 5.9 % (4.27-6.07)
== END 2024-01-22 14:57 | disposition home or self-care (01) ==
LOC: LAB 14:56
PROVIDERS: ATTEND Internal Medicine
DX: E11.9 Type 2 diabetes mellitus without complications (principal)
CPT/HCPCS: 36415; 83036

== ENCOUNTER 2024-01-23 14:39 | Outpatient (CLI) | payer MEDICARE, MEDICAID ==
[2024-01-23 15:12] LABS: BILIRUBIN,URINE NEGATIVE (NEGATIVE); GLUCOSE, URINE (UA) NEGATIVE (NEGATIVE); KETONES,URINE (UA) NEGATIVE (NEGATIVE); LEUKOCYTE ESTERASE, URINE LARGE (NEGATIVE); NITRITE,URINE POSITIVE (NEGATIVE); OCCULT BLOOD,URINE LARGE (NEGATIVE); PROTEIN,URINE NEGATIVE (NEGATIVE); UROBILINOGEN,URINE 4 E.U./dL (NORMAL)
[2024-01-23 15:14] LABS: CLARITY,URINE CLOUDY (CLEAR)
[2024-01-23 15:32] LABS: BACTERIA,URINE Few /HPF (None Seen); EPITHELIAL CELLS,UR FEW Transitional /HPF (<= Few); SQUAMOUS EPITHELIAL CELL,UR FEW Squamous (<= Few); WBC,URINE >25 /HPF (0-3)
== END 2024-01-23 14:40 | disposition home or self-care (01) ==
LOC: LAB.R 14:39
PROVIDERS: ATTEND Internal Medicine
DX: E11.9 Type 2 diabetes mellitus without complications (principal); N39.0 Urinary tract infection, site not specified
CPT/HCPCS: 81001; 87077; 87086; 87181

== ENCOUNTER 2024-03-10 14:31 | Outpatient (CLI) | payer MEDICARE, MEDICAID ==
[2024-03-10 15:11] LABS: BILIRUBIN,URINE NEGATIVE (NEGATIVE); GLUCOSE, URINE (UA) NEGATIVE (NEGATIVE); KETONES,URINE (UA) NEGATIVE (NEGATIVE); LEUKOCYTE ESTERASE, URINE LARGE (NEGATIVE); NITRITE,URINE NEGATIVE (NEGATIVE); OCCULT BLOOD,URINE LARGE (NEGATIVE); PROTEIN,URINE 30 mg/dL (NEGATIVE); UROBILINOGEN,URINE 1 (NORMAL) E.U./dL (NORMAL)
[2024-03-10 15:28] LABS: AMORPHOUS SEDIMENT,UR Rare /LPF; BACTERIA,URINE Many /HPF (None Seen); CLARITY,URINE TURBID (CLEAR); CRYSTALS,URINE 0-2 Triple Phosphate /LPF; EPITHELIAL CELLS,UR FEW Transitional /HPF (<= Few); RBC,URINE TNTC /HPF (0-5); SQUAMOUS EPITHELIAL CELL,UR MANY Squamous (<= Few); WBC CLUMPS,URINE PRESENT; WBC,URINE >25 /HPF (0-3)
== END 2024-03-10 14:32 | disposition home or self-care (01) ==
LOC: LAB.R 14:31
PROVIDERS: ATTEND Internal Medicine
DX: E11.9 Type 2 diabetes mellitus without complications (principal); N39.0 Urinary tract infection, site not specified
CPT/HCPCS: 81001; 87086